=== PATIENT | female | born 1960 | race Caucasian/White ===

== ENCOUNTER 2016-10-16 21:34 | Emergency (ER) | payer OTHER ==
[2016-10-16 21:54] VITALS: BP 176/85; PULSE 67; TEMP 98; BMI 27.4
--- NOTE | 2016-10-16 22:33 | PDOC ---
History of Present Illness - General History Source: Patient Exam Limitations: No Limitations - History of Present Illness Initial Comments: 10/16/16 22:54 The patient is a 56 year old male with a significant past medical history of HTN , non-insulin dependent diabetes, who presents to the ED with bilateral lumbar back pain for several days. He was seen at [address] [place] [address] Mai[address] He had plane film of the thoracic lumbar with no fracture or acute findings shown, but with significant degenerative disc disease. Patient had tylenol but with little to no alleviation. Patient is ambulatory. Patient denies any focal incontinence. Patient denies any fever, chills, nausea, vomiting, diarrhea. Patient denies any history of trauma. <Jordan Spencer - Last Filed: 10/16/16 22:49> <Lily Roldan - Last Filed: 10/16/16 23:08> - General Chief Complaint: Back Pain Stated Complaint: BACK PAIN/DEPRESSION Time Seen by Provider: 10/16/16 22:23 Past History <Jordan Spencer - Last Filed: 10/16/16 22:49> - Past Medical History Diabetes: Yes HTN: Yes Hypercholesterolemia: Yes - Psycho/Social/Smoking Cessation Hx Anxiety: No Suicidal Ideation: No Smoking Status: Yes Smoking History: Current every day smoker Number of Cigarettes Smoked Daily: 7 Information on smoking cessation initiated: No <Lily Roldan - Last Filed: 10/16/16 23:08> - Past Medical History Allergies/Adverse Reactions: Allergies Allergy/AdvReac Type Severity Reaction Status Date / Time Penicillins Allergy Verified 10/16/16 21:50 Home Medications: Ambulatory Orders Oxycodone HCl/Acetaminophen [Percocet 5-325 mg Tablet] 1 - 2 combo PO Q4H #20 tablet 12/03/11 Review of Systems - Review of Systems Able to Perform ROS?: Yes Comments:: 10/16/16 22:59 CONSTITUTIONAL: Absent: fever, chills, diaphoresis, generalized weakness, malaise, loss of appetite HEENT: Absent: rhinorrhea, nasal congestion, throat pain, throat swelling, difficulty swallowing, mouth swelling, ear pain, eye pain, visual Changes CARDIOVASCULAR: Absent: chest pain, syncope, palpitations, irregular heart rate, lightheadedness , peripheral edema RESPIRATORY: Absent: cough, shortness of breath, dyspnea with exertion, orthopnea, wheezing, stridor, hemoptysis GASTROINTESTINAL: Absent: abdominal pain, abdominal distension, nausea, vomiting, diarrhea, constipation, melena, hematochezia GENITOURINARY: Absent: dysuria, frequency, urgency, hesitancy, hematuria, flank pain, genital pain MUSCULOSKELETAL: Present: lumbar back pain Absent: myalgia, joint swelling SKIN: Absent: rash, itching, pallor HEMATOLOGIC/IMMUNOLOGIC: Absent: easy bleeding, easy bruising, lymphadenopathy, frequent infections ENDOCRINE: Absent: unexplained weight gain, unexplained weight loss, heat intolerance, cold intolerance NEUROLOGIC: Absent: headache, focal weakness or paresthesias, dizziness, unsteady gait, seizure, mental status changes, bladder or bowel incontinence PSYCHIATRIC: Absent: anxiety, depression, suicidal or homicidal ideation, hallucinations. <Jordan Spencer - Last Filed: 10/16/16 22:49> *Physical Exam - Vital Signs Last Vital Signs Temp Pulse Resp BP Pulse Ox 98.0 F 67 18 176/85 99 10/16/16 21:47 10/16/16 21:47 10/16/16 21:47 10/16/16 21:47 10/16/16 21:47 - Physical Exam Comments: 10/16/16 22:59 GENERAL: Well developed, well nourished. Awake and alert. No acute distress. HEENT: Normocephalic, atraumatic. PERRLA, EOMI. No conjunctival pallor. Sclera are non- icteric. Moist mucous membranes. Oropharynx is clear. NECK: Supple. Full ROM. No JVD. Carotid pulses 2+ and symmetric, without bruits. No thyromegaly. No lymphadenopathy. CARDIOVASCULAR: Regular rate and rhythm. No murmurs, rubs, or gallops. Distal pulses are 2+ and symmetric. PULMONARY: No evidence of respiratory distress. Lungs clear to auscultation bilaterally. No wheezing, rales or rhonchi. ABDOMINAL: Protuberant belly. Non-tender. Non-distended. No rebound or guarding. No organomegaly. Normoactive bowel sounds. MUSCULOSKELETAL No cervical or thoracic or lumbar vertebral tenderness. No tenderness or red vertebrae. Normal range of motion at all joints. No bony deformities or tenderness. No CVA tenderness. EXTREMITIES: No cyanosis. No clubbing. No edema. No calf tenderness. SKIN: Warm and dry. Normal capillary refill. No rashes. No jaundice. NEUROLOGICAL: Alert, awake, appropriate. Cranial nerves 2-12 intact. No deficits to light touch and temperature in face, upper extremities and lower extremities. No motor deficits in the in face, upper extremities and lower extremities. Normoreflexic in the upper and lower extremities. Normal speech. Toes are down-going bilaterally. Gait is normal without ataxia. PSYCHIATRIC: Cooperative. Good eye contact. Appropriate mood and affect. <Jordan Spencer - Last Filed: 10/16/16 22:49> - Vital Signs Last Vital Signs Temp Pulse Resp BP Pulse Ox 98.0 F 67 18 176/85 99 10/16/16 21:47 10/16/16 21:47 10/16/16 21:47 10/16/16 21:47 10/16/16 21:47 <Lily Roldan - Last Filed: 10/16/16 23:08> Medical Decision Making - Medical Decision Making 10/16/16 23:02 56-year-old female. Past medical history of hypertension, nondistended, diabetes and low back pain presents with back pain. She was seen by Dr. Rojo at [address] [place] [address] on 10/13/2016 and had x-ray of the lumbar spine. This showed degenerative disc disease. Patient does not have extremity weakness, tingling, saddle anesthesia,, fever, bowel incontinence Patient is requesting a neurology and orthopedic referral because she was told last week the [address] [place] [address] no longer has a neurologist on staff <Lily Roldan - Last Filed: 10/16/16 23:08> *DC/Admit/Observation/Transfer - Attestations Scribe Attestion: 10/16/16 23:01 Documentation prepared by Jordan Spencer, acting as medical engineer for Lily Roldan MD. <Jordan Spencer - Last Filed: 10/16/16 22:49> <Lily Roldan - Last Filed: 10/16/16 23:08> Diagnosis at time of Disposition: Low back pain Qualifiers: Chronicity: unspecified Back pain laterality: bilateral Sciatica presence: without sciatica Qualified Code(s): M54.5 - Low back pain - Discharge Dispostion Disposition: HOME Condition at time of disposition: Stable - Referrals Referrals: Leilani Smith MD [Primary Care Provider] - Yohan Miller MD [Staff Physician] - Fausto Mcgraw MD [Staff Physician] - - Patient Instructions Printed Discharge Instructions: DI for Low Back Pain Additional Instructions: 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
[2016-10-16] MEDS ORDERED: OXYCODONE/APAP 5/325MG COMBO TABLET PO ONE (22:41)
[2016-10-16] MEDS ORDERED: OXYCODONE/APAP 5/325MG COMBO TABLET ONE (22:48)
[2016-10-16] MEDS ORDERED: CYCLOBENZAPRINE HCL 10 MG TABLET (FP) PO ONE (22:56)
[2016-10-16] MEDS ORDERED: CYCLOBENZAPRINE HCL 10 MG TABLET (FP) ONE (23:00)
== END 2016-10-16 23:32 | disposition home or self-care (01) ==
LOC: JER 21:34
DX: M51.36 Other intervertebral disc degeneration, lumbar region (principal); E11.9 Type 2 diabetes mellitus without complications; Z79.84 Long term (current) use of oral hypoglycemic drugs; I10 Essential (primary) hypertension; E78.00 Pure hypercholesterolemia, unspecified; F17.210 Nicotine dependence, cigarettes, uncomplicated
CPT/HCPCS: 99281-25; 99282-25

== ENCOUNTER 2018-08-12 10:19 | Emergency (ER) | payer OTHER ==
[2018-08-12 10:33] VITALS: BMI 29.0
--- NOTE | 2018-08-12 11:30 | PDOC ---
History of Present Illness - General History Source: Patient Exam Limitations: Other (very poor historian) - History of Present Illness Initial Comments: Pt is a 58 yo F, with PMH of HTN and NIDDM, who is presenting with complaints of worsening epigastric pain over the past 2 weeks. Pt saw her PCP (Dr. Carreno ) on 07/31, who stopped her omeprazole and started "Naz" which she has been taking for 2 weeks BID. It is unclear why omeprazole was stopped, and pt states she has never seen a GI doctor or had endoscopy done. She states this medication is helping her, but this AM, she was unable to eat and had pain more severe than usual in her abdomen. The pain is worsened by eating and associated with nausea but no vomiting. Pt denies any recent alcohol or NSAID use. Pt denies any fevers/chills, headache, vision changes, syncope, chest pain, palpitations, SOB, urinary symptoms, diarrhea/constipation, or leg swelling. Social: Pt denies smokes 1/4 ppd, but denies alcohol or drug use. Pt denies any recent travel or sick contacts. Surgical: no relevant history. Family: no relevant history. 08/12/18 13:24 <Jennifer Dejesus - Last Filed: 08/12/18 14:01> <Zaki Menjivar - Last Filed: 08/12/18 14:25> - General Chief Complaint: Pain Stated Complaint: ABDOMINAL PAIN Time Seen by Provider: 08/12/18 10:41 Past History - Travel Traveled outside of the country in the last 30 days: No Close contact w/someone who was outside of country & ill: No - Past Medical History COPD: No Diabetes: Yes HTN: Yes Hypercholesterolemia: Yes - Suicide/Smoking/Psychosocial Hx Smoking Status: Yes Smoking History: Never smoked Number of Cigarettes Smoked Daily: 7 <Jennifer Dejesus - Last Filed: 08/12/18 14:01> <Zaki Menjivar - Last Filed: 08/12/18 14:25> - Past Medical History Allergies/Adverse Reactions: Allergies Allergy/AdvReac Type Severity Reaction Status Date / Time Penicillins Allergy Verified 08/12/18 10:32 Home Medications: Ambulatory Orders Oxycodone HCl/Acetaminophen [Percocet 5-325 mg Tablet] 1 - 2 combo PO Q4H #20 tablet 12/03/11 Oxycodone HCl/Acetaminophen [Percocet 5-325 mg Tablet] 1 tab PO Q6H PRN #8 tablet MDD 4 10/16/16 Pantoprazole Sodium [Protonix] 40 mg PO DAILY #30 tablet. 08/12/18 Review of Systems - Review of Systems Able to Perform ROS?: Yes Is the patient limited Maldivian proficient: No Constitutional: Yes: Weight Stable. No: Chills, Diaphoresis, Fever, Loss of Appetite, Malaise, Weakness HEENTM: No: Double Vision, Nose Congestion, Throat Pain, Throat Swelling Respiratory: No: Cough, Orthopnea, Shortness of Breath Cardiac (ROS): No: Chest Pain, Edema, Irregular Heart Rate, Lightheadedness, Palpitations, Syncope, Chest Tightness ABD/GI: Yes: See HPI, Nausea, Poor Appetite, Poor Fluid Intake, Indigestion. No : Abdominal Distended, Blood Streaked Bowels, Constipated, Diarrhea, Rectal Bleeding, Vomiting, Tarry Stools : No: Burning, Dysuria, Pain, Urgency Musculoskeletal: No: Back Pain, Joint Pain, Muscle Weakness Integumentary: No: Rash Neurological: No: Headache, Numbness, Weakness, Dizziness Psychiatric: No: Sleep Pattern Change, Change in Appetite Endocrine: No: Increased Urine, Change in Weight Hematologic/Lymphatic: No: Anemia, Blood Clots, Easy Bleeding, Easy Bruising All Other Systems: Reviewed and Negative <Jennifer Dejesus - Last Filed: 08/12/18 14:01> *Physical Exam - Vital Signs Last Vital Signs Temp Pulse Resp BP Pulse Ox 97.8 F 69 18 177/75 H 99 08/12/18 10:30 08/12/18 10:30 08/12/18 10:30 08/12/18 10:30 08/12/18 10:30 - Physical Exam Comments: HTN 177/75, pt afebrile. Pt in NAD, overweight body habitus. Pt alert and oriented x3. 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 Head normocephalic, atraumatic. Eyes PERRLA, EOMI. Oropharynx without erythema or exudates, no LAD b/l. No nasal congestion, hearing intact. Clear heart sounds, S1/S2, no JVD, b/l pedal edema, or heart murmur. Clear lung sounds, no respiratory distress, wheezes, crackles, or accessory muscle use. Epigastric tenderness to palpation No CVA tenderness, no rebound, no guarding. Abdomen soft, non-distended, and with normoactive bowel sounds. Skin without jaundice or rash. 08/12/18 13:26 <Jennifer Dejesus - Last Filed: 08/12/18 14:01> - Vital Signs Last Vital Signs Temp Pulse Resp BP Pulse Ox 97.8 F 69 18 177/75 H 99 08/12/18 10:30 08/12/18 10:30 08/12/18 10:30 08/12/18 10:30 08/12/18 10:30 <Zaki Menjivar - Last Filed: 08/12/18 14:25> ED Treatment Course - LABORATORY CBC & Chemistry Diagram: 08/12/18 12:23 08/12/18 12:23 <Jennifer Dejesus - Last Filed: 08/12/18 14:01> - LABORATORY CBC & Chemistry Diagram: 08/12/18 12:23 08/12/18 12:23 - ADDITIONAL ORDERS Additional order review: Laboratory Results 08/12/18 08/12/18 08/12/18 12:48 12:23 12:23 PT with INR 12.50 INR 1.06 Sodium 137 Potassium 4.4 Chloride 103 Carbon Dioxide 29 Anion Gap 6 L BUN 14 Creatinine 0.7 Creat Clearance w eGFR 85.65 Random Glucose 113 H Calcium 9.4 Total Bilirubin 0.2 AST 12 L ALT 22 Alkaline Phosphatase 118 H Troponin I < 0.02 Total Protein 7.3 Albumin 3.9 Lipase 193 Urine Color Yellow Urine Appearance Clear Urine pH 7.5 Ur Specific [place] 1.012 Urine Protein Negative Urine Glucose (UA) Negative Urine Ketones Negative Urine Blood Trace Urine Nitrite Negative Urine Bilirubin Negative Urine Urobilinogen 0.2 Ur Leukocyte Esterase Trace Urine WBC (Auto) 1 Urine RBC (Auto) 3 Urine Casts (Auto) 1 U Epithel Cells (Auto) 2.7 Urine Bacteria (Auto) 95.0 08/12/18 12:23 RBC 4.44 MCV 90.4 MCHC 33.5 RDW 13.1 MPV 9.3 Neutrophils % 47.1 Lymphocytes % 45.9 H Monocytes % 4.9 Eosinophils % 1.7 Basophils % 0.4 - Medications Given in the ED: ED Medications Discontinued Medications Generic Name Dose Route Start Last Admin Trade Name Gretta PRN Reason Stop Dose Admin Acetaminophen 1,000 mg 08/12/18 11:57 08/12/18 12:22 Ofirmev Injection - IVPB 08/12/18 11:58 1,000 mg ONCE ONE Administration Al Hydroxide/Mg Hydroxide 30 ml 08/12/18 11:57 08/12/18 12:22 Mylanta Oral Suspension - PO 08/12/18 11:58 30 ml ONCE ONE Administration Famotidine/Sodium Chloride 20 mg in 50 mls @ 100 mls/hr 08/12/18 11:57 12:22 Pepcid 20 Mg Premixed Ivpb - IVPB 08/12/18 12:26 100 mls/hr ONCE ONE Administration Lidocaine HCl 20 ml 08/12/18 11:57 08/12/18 12:22 Xylocaine 2% Viscous Oral - MM 08/12/18 11:58 20 ml ONCE ONE Administration <Zaki Menjivar - Last Filed: 08/12/18 14:25> Medical Decision Making - Medical Decision Making Pt was seen at bedside, also will be seen by attending Dr. Menjivar. Pt presenting with complaints of worsening epigastric pain over the past 2 weeks. Pt saw her PCP (Dr. Carreno) on 07/31, who stopped her omeprazole and started "Naz" which she has been taking for 2 weeks BID. It is unclear why omeprazole was stopped, and pt states she has never seen a GI doctor or had endoscopy done. She states this medication is helping her, but this AM, she was unable to eat and had pain more severe than usual in her abdomen. The pain is worsened by eating and associated with nausea but no vomiting. Pt denies any recent alcohol or NSAID use. Pt denies any fevers/chills, headache, vision changes, syncope, chest pain , palpitations, SOB, urinary symptoms, diarrhea/constipation, or leg swelling. Considering gastritis vs gastric/duodenal ulcer vs perforation vs pancreatitis vs cholecystitis vs ACS Ordered work-up including [labs] and [imaging]. Provided [interventions/meds] for improvement of [pain/symptom control]. Will continue to reassess pt and monitor for symptomatic improvement. ECG: Sinus bradycardia (HR 56), intervals otherwise WNL (NY 160, QRS 62, QTc 387 ). No TWIs or significant ST segment changes. No significant changes from prior ECG. Attempted to call Dr. Carreno's office for follow-up, but phone rang at 2 separate clinics with no message or answering service. Will have pt follow-up with appointment tomorrow AM. CBC and CMP WNL Trop <.02 Lipase 193 Chest x-ray shows no free air under the diaphragm, no acute pathology. 08/12/18 13:08 08/12/18 13:32 UA shows mild bacteria, but pt is asymptomatic. Will not treat at this time. Sending 40 mg protonix to pt pharmacy. Considering normal lab results and imaging, pt can be discharged to home with follow-up. Pt advised to follow-up with PCP in 1-2 days and has been referred to GI (Dr. De). Strict return precautions provided with pt understanding. 08/12/18 14:01 <Jennifer Dejesus - Last Filed: 08/12/18 14:01> *DC/Admit/Observation/Transfer - Discharge Dispostion Decision to Admit order: No <Jennifer Dejesus - Last Filed: 08/12/18 14:01> <Zaki Menjivar - Last Filed: 08/12/18 14:25> Diagnosis at time of Disposition: Gastritis Qualifiers: Gastritis type: unspecified gastritis Chronicity: acute Gastritis bleeding: without bleeding Qualified Code(s): K29.00 - Acute gastritis without bleeding - Discharge Dispostion Disposition: HOME Condition at time of disposition: Improved - Prescriptions Prescriptions: Pantoprazole Sodium [Protonix] 40 mg PO DAILY #30 tablet.dr - Referrals Referrals: Leilani Smith MD [Primary Care Provider] - Vivek De MD [Staff Physician] - - Patient Instructions Printed Discharge Instructions: DI for Gastritis Additional Instructions: You were seen in the ER today for pain in your upper abdomen. The results of your labs and imaging today were normal. Please follow-up with your primary care doctor and GI (Dr. De) within 1-2 days to discuss your visit and make sure your symptoms have improved. Please return to the ER if you have any worsening pain, development of fevers or chills, loss of consciousness, inability to tolerate food or fluids, or any other concerns. You also need to have your blood pressure re-checked by your primary doctor, as it was slightly elevated today. Uncontrolled blood pressure can eventually lead to kidney disease, heart disease, other serious illness, disability, or even . - Post Discharge Activity
[2018-08-12] MEDS ORDERED: ACETAMINOPHEN 1000 MG/100 ML VIAL (NON FORMULARY) IVPB ONE (11:57)
[2018-08-12] MEDS ORDERED: LIDOCAINE VISCOUS 2% ORAL/TOP 20 ML UNIT-DOSE CUP MM ONE (11:57)
[2018-08-12] MEDS ORDERED: MAG HYDROX/AL HYDROX/SIMETH 30 ML UNIT-DOSE CUP PO ONE (11:57)
[2018-08-12] MEDS ORDERED: FAMOTIDINE 20 MG/50 ML IVPB 20 MG/50 ML MG IVPB ONE ×2 (11:57→12:03)
[2018-08-12] MEDS ORDERED: MAG HYDROX/AL HYDROX/SIMETH 30 ML UNIT-DOSE CUP ONE (12:03)
[2018-08-12] MEDS ORDERED: LIDOCAINE VISCOUS 2% ORAL/TOP 20 ML UNIT-DOSE CUP ONE (12:03)
[2018-08-12] MEDS ORDERED: ACETAMINOPHEN INJECTION 100 ML IVPB ONE (12:03)
[2018-08-12 12:43] LABS: BASO % 0.4 % (0-2.0); EOS % 1.7 % (0-4.5); HEMATOCRIT 40.1 % (32.4-45.2); HEMOGLOBIN 13.4 GM/dL (10.7-15.3); LYMPH % 45.9 % (8-40); MCH 30.3 pg (25.7-33.7); MCHC 33.5 g/dl (32.0-36.0); MEAN CELL VOLUME 90.4 fl (80-96); MEAN PLT VOLUME 9.3 fl (7.5-11.1); MONO % 4.9 % (3.8-10.2); NEUT % 47.1 % (42.8-82.8); PLATELET COUNT 245 K/MM3 (134-434); RBC 4.44 M/mm3 (3.60-5.2); RDW 13.1 % (11.6-15.6); WHITE BLOOD COUNT 6.9 K/mm3 (4.0-10.0)
[2018-08-12 12:53] LABS: INR 1.06 (0.83-1.09); PROTHROMBIN TIME (PATIENT) 12.5 SEC (9.7-13.0)
[2018-08-12 13:04] LABS: ALBUMIN 3.9 g/dl (3.4-5.0); ALK PHOS 118 U/L (45-117); ANION GAP 6 MMOL/L (8-16); BILIRUBIN,TOTAL 0.2 mg/dL (0.2-1); BLOOD UREA NITROGEN 14 mg/dL (7-18); CALCIUM 9.4 mg/dL (8.5-10.1); CHLORIDE 103 mmol/L (98-107); CO2 29 mmol/L (21-32); CREATININE 0.7 mg/dL (0.55-1.3); GLUCOSE,RANDOM 113 mg/dL (74-106); LIPASE 193 U/L (73-393); POTASSIUM 4.4 mmol/L (3.5-5.1); SGOT/AST 12 U/L (15-37); SGPT/ALT 22 U/L (13-61); SODIUM 137 mmol/L (136-145); TOT PROT 7.3 g/dl (6.4-8.2)
--- NOTE | 2018-08-12 13:22 | PDOC ---
Attending Attestation - Resident Resident Name: Jennifer Dejesus - ED Attending Attestation I have performed the following: I have examined & evaluated the patient, The case was reviewed & discussed with the resident, I agree w/resident's findings & plan, Exceptions are as noted - HPI HPI: 08/12/18 13:17 58 F with h/o HTN presents to ED with epigastric pain x 2 weeks. Pt reports intermittent pain that is worse with eating. She endorses nausea without vomiting. Denies F/C. Denies CP/SOB. Pt states that she went to her PMD, who started her on a medication, the name of which she cannot recall. It has not helped. Pt deneis any dark or tarry stools. - Physicial Exam PE: 08/12/18 13:23 GENERAL: Awake, alert, and fully oriented, in no acute distress. HEAD: No signs of trauma EYES: PERRLA, EOMI, sclera anicteric, conjunctiva clear ENT: Auricles normal inspection, hearing grossly normal, nares patent, oropharynx clear without exudates. Moist mucosa NECK: Nontender, no stepoffs, Normal ROM, supple, no lymphadenopathy, JVD, or masses LUNGS: Breath sounds equal, clear to auscultation bilaterally. No wheezes, and no crackles HEART: Regular rate and rhythm, normal S1 and S2, no murmurs, rubs or gallops ABDOMEN: + epigastric TTP, negative pate's, normoactive bowel sounds. No guarding, no rebound. No masses EXTREMITIES: Normal range of motion, no edema. No clubbing or cyanosis. No cords, erythema, or tenderness NEUROLOGICAL: Cranial nerves II through XII intact. 5/5 strength and sensation in all extremities, Normal speech, normal gait, normal cerebellar function SKIN: Warm, Dry, normal turgor, no rashes or lesions noted. - Medical Decision Making 08/12/18 13:23 58 F with epigastric pain associated with eating. Suspect gastritis vs PUD. Negative pate's, zeina unlikely. - Labs, lipase, trop - EKG - GI cocktail 08/12/18 13:44 Labs wnl EKG unremarkable Pt reassessed - now with complete resolution of pain Will DC with GI f/u Pt is well appearing, with normal vitals. Clinically stable for DC at this time. I discussed the physical exam findings, ancillary test results and final diagnoses with the patient. I answered all of the patient's questions. The patient was satisfied with the care received and felt comfortable with the discharge plan and treatment plan. The patient agrees to follow up with the primary care physician within 24-72 hours.
[2018-08-12 13:33] LABS: EPI CELLS 2.7 /HPF (0-5/HPF); PH,URINE 7.5 (5.0-8.0); URINE APPEARANCE CLEAR; URINE BILIRUBIN NEGATIVE (NEGATIVE); URINE CASTS 1 /hpf (0-8); URINE COLOR YELLOW; URINE GLUCOSE (UA) NEGATIVE (NEGATIVE); URINE KETONE NEGATIVE (NEGATIVE); URINE LEUK ESTERASE TRACE (NEGATIVE); URINE NITRITE NEGATIVE (NEGATIVE); URINE PROTEIN NEGATIVE (NEGATIVE); URINE RBC 3 /hpf (0-4); URINE UROBILINOGEN 0.2 mg/dL (0.2-1.0); URINE WBC 1 /hpf (0-5)
[2018-08-12 14:26] VITALS: BP 140/50; PULSE 78; TEMP 98
--- NOTE | 2018-08-13 12:26 | EKG ---
Test Reason : Blood Pressure : / mmHG Vent. Rate : 056 BPM Atrial Rate : 056 BPM P-R Int : 160 ms QRS Dur : 062 ms QT Int : 402 ms P-R-T Axes : 055 011 014 degrees QTc Int : 387 ms SINUS BRADYCARDIA OTHERWISE NORMAL ECG WHEN COMPARED WITH ECG OF 10-JUN-2008 14:34, NO SIGNIFICANT CHANGE WAS FOUND Confirmed by EYAL MURO MD ([id number]) on 08/13/2018 12:26:34 PM Referred By: Confirmed By:EYAL MURO MD
== END 2018-08-12 14:26 | disposition home or self-care (01) ==
LOC: JER 10:19
PROC: 3E033GC Introduction of Other Therapeutic Substance into Peripheral Vein, Percutaneous Approach (ICD-10-PCS; principal; 2018-08-12)
PROC: 3E033NZ Introduction of Analgesics, Hypnotics, Sedatives into Peripheral Vein, Percutaneous Approach (ICD-10-PCS; 2018-08-12)
DX: K29.00 Acute gastritis without bleeding (principal); I10 Essential (primary) hypertension; E11.9 Type 2 diabetes mellitus without complications; Z79.84 Long term (current) use of oral hypoglycemic drugs; Z88.0 Allergy status to penicillin
CPT/HCPCS: 36415; 71046-TC-FY; 80053; 81003; 83690; 84484; 85025; 85610; 87086; 93005; 93010; 96365; 96375; 99283-25; J0131

== ENCOUNTER 2018-11-21 22:49 | Emergency (ER) | payer OTHER ==
[2018-11-21 23:15] VITALS: TEMP 98.4; BMI 32.4
[2018-11-21] MEDS ORDERED: FAMOTIDINE 20 MG/50 ML IVPB 20 MG/50 ML MG IVPB ONE (23:59)
[2018-11-21] MEDS ORDERED: MAG HYDROX/AL HYDROX/SIMETH 30 ML UNIT-DOSE CUP PO ONE (23:59)
[2018-11-22] MEDS ORDERED: ONDANSETRON *ODT* 4 MG TABLET SL ONE
--- NOTE | 2018-11-22 00:21 | PDOC ---
History of Present Illness - General Chief Complaint: Chest Pain Stated Complaint: CHEST PAIN Time Seen by Provider: 11/21/18 23:34 History Source: Patient Exam Limitations: No Limitations - History of Present Illness Initial Comments: 11/22/18 00:00 58 yo female pmh DM, HTN, HLD, GERD and depression presents to the ED for intermittent non exertional CP since July. Pt states the pain starts in the Epigastric region and radiates up into the substernal area described as pressure and burning without correlation to exercise. Pt has never seen Cardiology or GI. Pt recently seen by Psych for depression, on sertarline. Denies F/C/N/V, back pain, SOB, changes in bowel or bladder habits. Past History - Past Medical History Allergies/Adverse Reactions: Allergies Allergy/AdvReac Type Severity Reaction Status Date / Time Penicillins Allergy Verified 11/21/18 23:14 Home Medications: Ambulatory Orders Carvedilol [Coreg -] 12.5 mg PO BID 11/22/18 Hydrochlorothiazide [Hctz -] 25 mg PO DAILY 11/22/18 Losartan Potassium [Cozaar -] 25 mg PO DAILY 11/22/18 Lovastatin 40 mg PO DAILY 11/22/18 Ranitidine [Zantac -] 150 mg PO BID 11/22/18 Sertraline HCl [Zoloft -] 50 mg PO DAILY 11/22/18 Sitagliptin Phosphate [Januvia] 50 mg PO ONCE 11/22/18 COPD: No Diabetes: Yes HTN: Yes Hypercholesterolemia: Yes - Suicide/Smoking/Psychosocial Hx Smoking Status: Yes Smoking History: Never smoked Have you smoked in the past 12 months: No Number of Cigarettes Smoked Daily: 7 Information on smoking cessation initiated: No Hx Alcohol Use: No Drug/Substance Use Hx: No Review of Systems - Review of Systems Constitutional: No: Chills, Fever Respiratory: No: Shortness of Breath Cardiac (ROS): Yes: Chest Pain. No: Edema, Palpitations ABD/GI: Yes: Nausea, Other (epigastric abdominal pain). No: Constipated, Diarrhea, Vomiting : No: Burning, Dysuria, Frequency, Flank Pain, Hematuria, Incontinence Integumentary: No: Change in Color Neurological: No: Numbness, Paresthesia, Weakness Psychiatric: Yes: Depression *Physical Exam - Vital Signs Last Vital Signs Temp Pulse Resp BP Pulse Ox 98.4 F 75 18 154/78 100 11/21/18 22:49 11/21/18 22:49 11/21/18 22:49 11/21/18 22:49 11/21/18 22:49 - Physical Exam General Appearance: Yes: Nourished, Appropriately Dressed. No: Apparent Distress HEENT: positive: EOMI Neck: positive: Supple. negative: Carotid bruit Respiratory/Chest: positive: Lungs Clear, Normal Breath Sounds. negative: Respiratory Distress, Crackles, Rales, Stridor, Wheezing Cardiovascular: positive: Regular Rhythm, Regular Rate, S1, S2. negative: Edema , JVD, Murmur Vascular Pulses: Dorsalis-Pedis (R): 3+, Doralis-Pedis (L): 3+ Gastrointestinal/Abdominal: positive: Flat, Soft, Tenderness (epigastric). negative: Pulsatile Mass, Distended, Guarding, Rebound Musculoskeletal: negative: CVA Tenderness Extremity: positive: Normal Capillary Refill, Normal Inspection, Normal Range of Motion, Other (ambulating without difficulty) Integumentary: positive: Normal Color, Dry, Warm Neurologic: positive: Fully Oriented, Alert, Normal Mood/Affect, Normal Response ED Treatment Course - LABORATORY CBC & Chemistry Diagram: 11/22/18 00:40 11/22/18 00:40 - RADIOLOGY Radiology Studies Ordered: Category Date Time Status CHEST X-RAY PORTABLE* [RAD] Stat Radiology 11/21/18 23:58 Ordered Medical Decision Making - Medical Decision Making 11/22/18 05:17 58 yo female pmh DM, HTN, HLD, GERD and depression presents to the ED for intermittent non exertional CP since July. Pt states the pain starts in the Epigastric region and radiates up into the substernal area described as pressure and burning without correlation to exercise. Pt has never seen Cardiology or GI. Pt recently seen by Psych for depression, on sertarline. Denies F/C/N/V, back pain, SOB, changes in bowel or bladder habits. vitals WNL EKG NSR without ST changes DDX INLT: ACS, PE, PNA, GERD, gastric ulcer, panic attack Pt had cardiac w/u normal, pt presenting for 3 months of CP intermittent Chest/Abd/Pel CT neg for acute or life threatening changes Labs WNL treated with maalox and pepcid with improvement in symptoms Pt did not take Ranitidine today and states todays epigastric pain with radiation to the chest is worse than baseline CP for the past 3 months pt likely suffering from GERD vs anxiety. discussed taking home dosed medications as prescribed and to f/u with her Psychiatrist Pt understands plan *DC/Admit/Observation/Transfer Diagnosis at time of Disposition: Gastritis, Chest pain, Abdominal pain - Discharge Dispostion Disposition: HOME Condition at time of disposition: Stable Decision to Admit order: No - Referrals Referrals: Leilani Smith MD [Primary Care Provider] - Natanael Garcia DO [Staff Physician] - - Patient Instructions Printed Discharge Instructions: DI for Abdominal Pain-Adult, DI for Atypical Chest Pain, DI for Chest Pain Additional Instructions: Please see your primary Doctor within the next 48 hours. Call to make an appointment with the GI doctor referred to you. Take over the counter NSAID medication for pain relief. Return to the ER for new or concerning symptoms including but not limited to: chest pain, abdominal pain, inability to eat or drink, high fevers. Thank you Print Language: [place] - Post Discharge Activity
[2018-11-22 00:51] LABS: BASO % 0.2 % (0-2.0); EOS % 3.2 % (0-4.5); HEMATOCRIT 39.1 % (32.4-45.2); HEMOGLOBIN 13.3 GM/dL (10.7-15.3); LYMPH % 39.1 % (8-40); MCH 31.4 pg (25.7-33.7); MCHC 34.1 g/dl (32.0-36.0); MEAN PLT VOLUME 9.6 fl (7.5-11.1); MONO % 5.8 % (3.8-10.2); NEUT % 51.7 % (42.8-82.8); PLATELET COUNT 207 K/MM3 (134-434); RBC 4.25 M/mm3 (3.60-5.2); RDW 13.5 % (11.6-15.6); WHITE BLOOD COUNT 7.2 K/mm3 (4.0-10.0)
[2018-11-22] MEDS ORDERED: ONDANSETRON 4 MG/2 ML VIAL ONE (00:51)
[2018-11-22] MEDS ORDERED: MAG HYDROX/AL HYDROX/SIMETH 30 ML UNIT-DOSE CUP ONE (00:51)
[2018-11-22] MEDS ORDERED: FAMOTIDINE 20 MG/50 ML IVPB 20 MG/50 ML MG IVPB ONE (00:51)
[2018-11-22 01:22] LABS: ALBUMIN 3.8 g/dl (3.4-5.0); BILIRUBIN,TOTAL 0.2 mg/dL (0.2-1); BLOOD UREA NITROGEN 13.6 mg/dL (7-18); CALCIUM 9.1 mg/dL (8.5-10.1); CREATININE 0.8 mg/dL (0.55-1.3); TOT PROT 6.9 g/dl (6.4-8.2)
[2018-11-22 03:47] VITALS: BP 137/68; PULSE 71
--- NOTE | 2018-11-22 04:22 | PDOC ---
Documentation entered by Delores Teague SCRIBE, acting as scribe for Cyn Clarke DO. Cyn Clarke DO: This documentation has been prepared by the isabella, Delores Teague SCRIBE, under my direction and personally reviewed by me in its entirety. I confirm that the documentation accurately reflects all work , treatment, procedures, and medical decision making performed by me. Attending Attestation - Resident Resident Name: Juancarlos Lowry - ED Attending Attestation I have performed the following: I have examined & evaluated the patient, The case was reviewed & discussed with the resident, I agree w/resident's findings & plan, Exceptions are as noted - HPI HPI: 11/22/18 00:06 The patient is a 58-year-old female, with a past medical history of HTN, HLD, DM , acid reflux, and depression, who presents to the ED with progressively worsening midsternal chest pain that began in July 2018. The patient describes the pain as intermittent, sharp/burning in sensation, radiating down to her epigastrium, exacerbated with food consumption, and accompanied by nausea but no vomiting. Daughter states that the mother has also been experiencing depression since July and has been seeing a psychologist, but she has not seen an improvement in her mood. The patient denies any fevers, chills, or diarrhea. Denies palpitations or shortness of breath. Denies any urinary symptoms. Denies any weakness, dizziness , lightheadedness, or strength or sensory changes. Allergies: Penicillins - Physicial Exam PE: 11/22/18 00:07 Agree with resident exam. - Medical Decision Making 11/22/18 04:18 58-year-old female with several months of intermittent left upper quadrant pain CTA of the chest abdomen and pelvis was performed which was negative for significant acute abnormality Patient given Maalox and Pepcid with improvement in the emergency department Plan for discharge with outpatient GI follow-up
--- NOTE | 2018-11-22 14:36 | EKG ---
Test Reason : Blood Pressure : / mmHG Vent. Rate : 075 BPM Atrial Rate : 075 BPM P-R Int : 160 ms QRS Dur : 064 ms QT Int : 360 ms P-R-T Axes : 055 011 028 degrees QTc Int : 402 ms NORMAL SINUS RHYTHM NORMAL ECG WHEN COMPARED WITH ECG OF 12-AUG-2018 13:17, NO SIGNIFICANT CHANGE WAS FOUND Confirmed by JACKIE CASTILLO MD ([id number]) on 11/22/2018 2:36:31 PM Referred By: Confirmed By:JACKIE CASTILLO MD
--- NOTE | 2018-11-23 14:21 | EKG ---
Test Reason : Blood Pressure : / mmHG Vent. Rate : 068 BPM Atrial Rate : 068 BPM P-R Int : 164 ms QRS Dur : 066 ms QT Int : 384 ms P-R-T Axes : 066 023 036 degrees QTc Int : 408 ms NORMAL SINUS RHYTHM NORMAL ECG WHEN COMPARED WITH ECG OF 21-NOV-2018 22:52, NO SIGNIFICANT CHANGE WAS FOUND Confirmed by YECENIA COVARRUBIAS MD ([id number]) on 11/23/2018 2:21:06 PM Referred By: Confirmed By:YECENIA COVARRUBIAS MD
== END 2018-11-22 05:45 | disposition home or self-care (01) ==
LOC: JER 22:49
PROC: 3E033GC Introduction of Other Therapeutic Substance into Peripheral Vein, Percutaneous Approach (ICD-10-PCS; principal; 2018-11-21)
DX: R07.9 Chest pain, unspecified (principal); R10.9 Unspecified abdominal pain; K29.70 Gastritis, unspecified, without bleeding; E11.9 Type 2 diabetes mellitus without complications; I10 Essential (primary) hypertension; E78.5 Hyperlipidemia, unspecified; F32.9 Major depressive disorder, single episode, unspecified
CPT/HCPCS: 36415; 71045-TC-FY; 71275-TC; 75635-TC; 80053; 82550; 83605; 83690; 84484; 85025; 93005; 93010; 99284-25; Q0162

== ENCOUNTER 2022-02-24 08:48 | Emergency (ER) | payer OTHER ==
[2022-02-24 08:58] VITALS: BP 181/90; PULSE 82; RESP 20; TEMP 98.2; BMI 32.0
[2022-02-24] MEDS ORDERED: SODIUM CHLORIDE 0.9% 500 ML INFUS.BAG IV ONE (09:32)
[2022-02-24] MEDS ORDERED: METOCLOPRAMIDE HCL INJECTION 10 MG/2 ML VIAL IVPUSH ONE (09:33)
[2022-02-24] MEDS ORDERED: ACETAMINOPHEN 1000 MG/100 ML BAG IVPB ONE (09:33)
[2022-02-24] MEDS ORDERED: ACETAMINOPHEN INJECTION 100 ML IVPB ONE (10:15)
[2022-02-24] MEDS ORDERED: METOCLOPRAMIDE HCL INJECTION 10 MG/2 ML VIAL ONE (10:15)
[2022-02-24] MEDS ORDERED: LIDOCAINE 5% TOPICAL PATCH TP ONE (11:18)
[2022-02-24] MEDS ORDERED: LIDOCAINE 5% TOPICAL PATCH ONE (11:37)
[2022-02-24 11:53] LABS: BASO % 0.3 % (0-2.0); EOS % 2.5 % (0-4.5); HEMATOCRIT 40.4 % (32.4-45.2); LYMPH % 26.8 % (8-40); MCH 31.7 pg (25.7-33.7); MCHC 34.6 g/dl (32.0-36.0); MEAN CELL VOLUME 91.5 fl (80-96); MEAN PLT VOLUME 9.7 fl (7.5-11.1); MONO % 5.3 % (3.8-10.2); NEUT % 65.1 % (42.8-82.8); PLATELET COUNT 234 10^3/uL (134-434); RBC 4.42 M/mm3 (3.60-5.2); RDW 12.9 % (11.6-15.6); WHITE BLOOD COUNT 6.2 K/mm3 (4.0-10.0)
[2022-02-24 12:20] LABS: CHLORIDE 104 mmol/L (98-107); SODIUM 141 mmol/L (136-145)
[2022-02-24 12:23] LABS: ALBUMIN 3.8 g/dl (3.4-5.0); CALCIUM 9.6 mg/dL (8.5-10.1)
[2022-02-24 12:24] LABS: ANION GAP 7 MMOL/L (8-16); BLOOD UREA NITROGEN 13.9 mg/dL (7-18); CO2 29 mmol/L (21-32); GLUCOSE,RANDOM 214 mg/dL (74-106)
[2022-02-24 12:26] LABS: SGPT/ALT 23 U/L (13-61)
[2022-02-24 12:27] LABS: CREATININE 0.9 mg/dL (0.55-1.3); SGOT/AST 38 U/L (15-37)
[2022-02-24 12:28] LABS: BILIRUBIN,TOTAL 0.6 mg/dL (0.2-1); TOT PROT 7.5 g/dl (6.4-8.2)
[2022-02-24 12:29] LABS: ALK PHOS 117 U/L (45-117)
[2022-02-24 14:25] LABS: ALBUMIN 3.7 g/dl (3.4-5.0); CALCIUM 9.3 mg/dL (8.5-10.1)
[2022-02-24 14:26] LABS: BLOOD UREA NITROGEN 13.1 mg/dL (7-18)
[2022-02-24 14:29] LABS: CREATININE 0.8 mg/dL (0.55-1.3)
[2022-02-24 14:30] LABS: BILIRUBIN,TOTAL 0.4 mg/dL (0.2-1); TOT PROT 6.8 g/dl (6.4-8.2)
[2022-02-24] MEDS ORDERED: LIDOCAINE PATCH REMOVAL MC ONE (22:00)
== END 2022-02-24 15:30 | disposition home or self-care (01) ==
LOC: JER 08:48
PROC: 3E033GC Introduction of Other Therapeutic Substance into Peripheral Vein, Percutaneous Approach (ICD-10-PCS; principal; 2022-02-24)
DX: R51.9 Headache, unspecified (principal); J32.9 Chronic sinusitis, unspecified; M62.838 Other muscle spasm
CPT/HCPCS: 0241U-QW; 36415; 70450-TC; 80053; 84484; 85025; 93005; 93010; 99285-25

== ENCOUNTER 2023-09-30 18:49 | Emergency (ER) | payer OTHER ==
[2023-09-30 19:06] VITALS: BP 160/66; PULSE 90; RESP 16; TEMP 98.4; BMI 26.2
[2023-09-30] MEDS ORDERED: ACETAMINOPHEN 325 MG TABLET (FP) ONE (19:54)
[2023-09-30] MEDS ORDERED: LIDOCAINE 4% PATCH TP ONE (19:54)
[2023-09-30] MEDS: ACETAMINOPHEN 325 MG TABLET (FP) PO ONE (19:57)
[2023-09-30] MEDS: LIDOCAINE 5% TOPICAL PATCH TP ONE (19:57)
[2023-10-01] MEDS ORDERED: LIDOCAINE PATCH REMOVAL MC SCH (08:00)
== END 2023-09-30 20:20 | disposition home or self-care (01) ==
LOC: JERFT 18:49 → JER 18:49 → JERFT 20:20
DX: M54.41 Lumbago with sciatica, right side (principal); M25.561 Pain in right knee
CPT/HCPCS: 99283-25

== ENCOUNTER 2024-02-22 10:04 | Emergency (ER) | payer OTHER ==
[2024-02-22 10:40] VITALS: TEMP 98; BMI 26.2
[2024-02-22] MEDS ORDERED: ACETAMINOPHEN 325 MG TABLET (FP) ONE (11:51)
[2024-02-22] MEDS: ACETAMINOPHEN 500 MG TABLET (FP) PO ONE (11:52)
[2024-02-22] MEDS: SODIUM CHLORIDE 0.9% 500 ML INFUS.BAG IV ONE (11:56)
[2024-02-22] MEDS ORDERED: METOCLOPRAMIDE HCL INJECTION 10 MG/2 ML VIAL ONE (12:17)
[2024-02-22 12:19] LABS: EOS % 0.7 % (0-4.5); HEMATOCRIT 44.6 % (32.4-45.2); HEMOGLOBIN 15.3 GM/dL (10.7-15.3); LYMPH % 29.3 % (8-40); MCH 31.6 pg (25.7-33.7); MCHC 34.2 g/dl (32.0-36.0); MEAN CELL VOLUME 92.2 fl (80-96); MONO % 5.3 % (3.8-10.2); NEUT % 63.7 % (42.8-82.8); RBC 4.84 M/mm3 (3.60-5.2); RDW 13.9 % (11.6-15.6); WHITE BLOOD COUNT 9.5 K/mm3 (4.0-10.0)
[2024-02-22] MEDS: METOCLOPRAMIDE HCL INJECTION 10 MG/2 ML VIAL IVPUSH ONE (12:26)
[2024-02-22 12:41] LABS: PLATELET ESTIMATE ADEQUATE
[2024-02-22 13:56] LABS: POTASSIUM 4.2 mmol/L (3.5-5.1)
[2024-02-22 13:58] LABS: CALCIUM 8.1 mg/dL (8.5-10.1)
[2024-02-22 14:02] LABS: CREATININE 0.8 mg/dL (0.55-1.3)
[2024-02-22 14:03] LABS: BILIRUBIN,TOTAL 0.3 mg/dL (0.2-1); TOT PROT 5.4 g/dl (6.4-8.2)
[2024-02-22 14:24] VITALS: BP 155/62; PULSE 61; RESP 16
== END 2024-02-22 16:54 | disposition home or self-care (01) ==
LOC: JER 10:04
PROC: 3E033GC Introduction of Other Therapeutic Substance into Peripheral Vein, Percutaneous Approach (ICD-10-PCS; principal; 2024-02-22)
DX: R00.2 Palpitations (principal); R00.0 Tachycardia, unspecified; R51.9 Headache, unspecified
CPT/HCPCS: 36415; 71045-TC-FY; 80053; 84443; 84484; 85025; 93005; 93010; 99285-25

== ENCOUNTER 2024-07-07 09:44 | Emergency (ER) | payer OTHER ==
[2024-07-07 09:51] VITALS: BP 129/47; PULSE 80; RESP 18; TEMP 98.3; BMI 26.9
[2024-07-07] MEDS ORDERED: SULFAMETHOXAZOLE/TRIMETHOPRIM 800MG/160MG D.S. TABLET ONE (10:35)
[2024-07-07] MEDS ORDERED: ACETAMINOPHEN 325 MG TABLET (FP) ONE (10:35)
[2024-07-07] MEDS: ACETAMINOPHEN 325 MG TABLET (FP) PO ONE (10:42)
[2024-07-07] MEDS: SULFAMETHOXAZOLE/TRIMETHOPRIM 800MG/160MG D.S. TABLET PO ONE (10:42)
== END 2024-07-07 11:02 | disposition home or self-care (01) ==
LOC: JER 09:44
DX: N61.1 Abscess of the breast and nipple (principal)
CPT/HCPCS: 99283-25